=== PATIENT | male | born 1935 | race Caucasian/White ===

== ENCOUNTER 2019-09-14 01:37 | Outpatient (CLI) | payer MEDICARE, BC, SELFPAY ==
[2019-09-14 19:20] LABS: SARS-CoV-2 RNA PCR Negative
== END 2019-09-14 01:38 | disposition home or self-care (01) ==
LOC: ANHCOVIDDT 01:38
PROVIDERS: Visit Provider Internal Medicine Gastroenterology
DX: Z01.812 Encounter for preprocedural laboratory examination (principal); Z11.59 Encounter for screening for other viral diseases
CPT/HCPCS: 87635; C9803; U0003

== ENCOUNTER 2019-09-16 02:55 | Day surgery (SDC) | payer MEDICARE, BC, SELFPAY ==
[2019-09-09 13:31] VITALS: BMI 25.7
[2019-09-16 07:10] VITALS: BP 157/78; PULSE 79; RESP 18; TEMP 36.7; O2SAT 100
[2019-09-16 07:11] VITALS: BMI 26.4
[2019-09-16] MEDS: LACTATED RINGERS 1,000 ML 150 ML IV CONT (07:27)
--- NOTE | 2019-09-16 07:28 | WPDANESEPPF ---
Anes - Initial Pre Proc Eval Procedure: Operation Date: 09/16/19 08:30 Proposed Procedures p Screening Colonoscopy - Mian Parham MD Date/Time: 09/16/19 07:28 Surgeon: Mian Parham MD Pre Op Diagnosis: hx colon polyps, fm hx colon polyps Patient Data Age: 83 Gender: M Height: 1.75 m Weight: 81.2 kg Last Vital Signs Temp 36.7 C 09/16/19 07:10 Pulse 79 09/16/19 07:10 Resp 18 09/16/19 07:10 BP 157/78 H 09/16/19 07:10 Pulse Ox 100 09/16/19 07:10 Allergies Allergy/AdvReac Type Severity Reaction Status Date / Time NKDA Allergy Unknown Uncoded 09/16/19 07:14 Home Medications Medication Instructions Recorded Confirmed Type aspirin 325 mg PO DAILY 09/09/19 09/16/19 History atorvastatin 40 mg PO DAILY 09/09/19 09/16/19 History diclofenac sodium 75 mg PO BID 09/09/19 09/16/19 History folic acid 0.8 mg PO DAILY 09/09/19 09/16/19 History glipizide 5 mg PO DAILY 09/09/19 09/16/19 History indapamide 1.25 mg PO DAILY 09/09/19 09/16/19 History levothyroxine [Synthroid] 112 mcg PO DAILY 09/09/19 09/16/19 History losartan 25 mg PO DAILY 09/09/19 09/16/19 History metformin 500 mg PO BID 09/09/19 09/16/19 History metoprolol tartrate 25 mg PO BID 09/09/19 09/16/19 History potassium gluconate 600 mg PO DAILY 09/09/19 09/16/19 History Patient hx anesthesia problems: none Family hx anesthesia problems: none PMFSH Past Medical History Medical History (Updated 09/16/19 @ 07:30 by Missael Lora MD) CAD (coronary artery disease) Diabetes HTN (hypertension) Hx of myocardial infarction X2 [place] 1994 Hypercholesterolemia Hypothyroidism Surgical History Surgical History (Updated 09/16/19 @ 07:30 by Missael Lora MD) Hx of cardiac catheterization Hx of coronary artery bypass graft TRIPLE Anes - Eval Final PreProcedure Day of Procedure 09/16/19 07:28 Patient weight: overweight Heart: regular rate and rhythm Lungs: clear to auscultation and normal air movement Airway: Mallampati scale class II Neurological: alert and oriented Last oral intake: >/= 8 hours ASA classification: III Emergent: no Anesthetic plan: proceed Anesthesia type and monitoring: general GIVS Informed Consent: The patient's anesthetic plan and its attendant risks and benefits were discussed with the patient/family/POA. Questions were solicited and answers provided to the satisfaction of the patient/family/POA.
[2019-09-16 07:38] LABS: Glucose Point of Care 93 (65-105)
--- NOTE | 2019-09-16 07:58 | P.CONGI_ITS ---
Assessment and Plan Assessment and plan (1) History of colon polyps: Code(s): Z86.010 - Personal history of colonic polyps Status: Acute Assessment and Plan: Plan is for surveillance colonoscopy today. Last colonoscopy 5 years ago did show colon polyps. (2) Family history of malignant neoplasm of colon in first degree relative diagnosed when younger than 60 years of age: Code(s): Z80.0 - Family history of malignant neoplasm of digestive organs Status: Acute GI Consult Note Consult date/time: 09/16/19 07:58 HPI: Mo Camarillo is a 83 year old male Seen in evaluation at the request of . patient presents for neoplasia screening colonoscopy. Patient has a history of colon polyps at last exam 5 years ago. Family history is significant for colon cancer. In family members. Patient states his current weight appetite bowel movements are normal. He denies abdominal pain. Has had no blood in his stools. Review of Systems Review of Systems: All systems reviewed & are unremarkable except as noted in HPI and below PMFSH Past Medical History Medical History CAD (coronary artery disease) Diabetes HTN (hypertension) Hx of myocardial infarction X2 [place] 1994 Hypercholesterolemia Hypothyroidism Surgical History Surgical History Hx of cardiac catheterization Hx of coronary artery bypass graft TRIPLE Meds Home Medications and Allergies Home Medications Medication Instructions Recorded Confirmed Type aspirin 325 mg PO DAILY 09/09/19 09/16/19 History atorvastatin 40 mg PO DAILY 09/09/19 09/16/19 History diclofenac sodium 75 mg PO BID 09/09/19 09/16/19 History folic acid 0.8 mg PO DAILY 09/09/19 09/16/19 History glipizide 5 mg PO DAILY 09/09/19 09/16/19 History indapamide 1.25 mg PO DAILY 09/09/19 09/16/19 History levothyroxine [Synthroid] 112 mcg PO DAILY 09/09/19 09/16/19 History losartan 25 mg PO DAILY 09/09/19 09/16/19 History metformin 500 mg PO BID 09/09/19 09/16/19 History metoprolol tartrate 25 mg PO BID 09/09/19 09/16/19 History potassium gluconate 600 mg PO DAILY 09/09/19 09/16/19 History Allergies Allergy/AdvReac Type Severity Reaction Status Date / Time NKDA Allergy Unknown Uncoded 09/16/19 07:14 Vital Signs Vital Signs - 24 hr 09/16/19 07:10 Temperature 98.1 F Pulse Rate 79 Respiratory Rate 18 Blood Pressure 157/78 H Pulse Oximetry 100 Exam Narrative: Exam Narrative: Physical exam reveals patient to be alert. Vital signs stable. HEENT exam unremarkable. Lungs are clear to auscultation and percussion. Heart is without murmur or extra sounds. Abdominal exam bowel julio nds are present soft nontender with no organomegaly. Digital external rectal exam normal.
[2019-09-16 10:15] VITALS: BP 133/58; PULSE 62; RESP 16; O2SAT 98
[2019-09-16 10:25] VITALS: BP 126/60; PULSE 61; RESP 18; O2SAT 97
[2019-09-16 10:35] VITALS: BP 143/69; PULSE 63; RESP 20; O2SAT 99
== END 2019-09-16 10:53 | disposition home or self-care (01) ==
PROVIDERS: Visit Provider Internal Medicine Gastroenterology
PROC: 0DJD8ZZ Inspection of Lower Intestinal Tract, Via Natural or Artificial Opening Endoscopic (ICD-10-PCS; CPT 45378; principal; 2019-09-16 08:30)
DX: Z12.11 Encounter for screening for malignant neoplasm of colon (principal); K57.30 Diverticulosis of large intestine without perforation or abscess without bleeding; K64.8 Other hemorrhoids; Z86.010 Personal history of colon polyps; Z80.0 Family history of malignant neoplasm of digestive organs; I10 Essential (primary) hypertension; I25.10 Atherosclerotic heart disease of native coronary artery without angina pectoris; E11.9 Type 2 diabetes mellitus without complications; I25.2 Old myocardial infarction; E78.00 Pure hypercholesterolemia, unspecified; E03.9 Hypothyroidism, unspecified; Z95.1 Presence of aortocoronary bypass graft; Z79.82 Long term (current) use of aspirin; Z79.84 Long term (current) use of oral hypoglycemic drugs
CPT/HCPCS: G0105; J2704; J7120